=== PATIENT | male | born 1950 | race Caucasian/White ===

== ENCOUNTER 2016-10-18 16:09 | Emergency (ER) | payer OTHER ==
[2016-10-18 16:41] LABS: BASOPHILS 0.5 % (0.0-2.0); EOSINOPHILS 1.9 % (0-7); IMMATURE GRANULOCYTES 0.7 % (0-5); LYMPHOCYTES 13.2 % (15-50); MCH 29.3 pg (26.0-34.0); MCHC 32.5 g/dL (31.0-37.0); MCV 90.1 fL (80.0-100.0); MEAN PLATELET VOLUME 11.8 fL (7.4-10.4); MONOCYTES 10.4 % (2-11); NEUTROPHILS 73.3 % (40-80); PLATELET COUNT 147 10x3/uL (130-400); RBC 2.22 10x6/uL (4.20-6.10); RDW 18.8 % (11.5-14.5); WBC 9.1 10x3/uL (4.8-10.8)
[2016-10-18 17:13] LABS: ALKALINE PHOSPHATASE 55 U/L (46-116); ALT (SGPT) 28 U/L (10-68); BILIRUBIN - TOTAL 0.28 mg/dL (0.2-1.3); CALC OSMOLALITY 288 mosm/kg (275-300); CALCIUM 8.4 mg/dL (8.5-10.1); CHLORIDE - SERUM 106 mmol/L (98-107); CREATININE - SERUM 1.3 mg/dL (0.6-1.3); GLUCOSE 220 mg/dL (74-106); PROTEIN - SERUM 6.2 g/dL (6.4-8.2); SODIUM 141 mmol/L (136-145); UREA NITROGEN 15 mg/dL (7-18); eGFR NON AFRICAN AMERICAN 58 mL/min (90-120)
[2016-10-18 17:17] LABS: HEMOGLOBIN 6.5 g/dL (13.5-17.5)
[2016-10-18 17:28] LABS: CHOL - HDL RATIO 2.9 ratio (2.3-4.9); CHOLESTEROL, TOTAL 91 mg/dL (0-200); CKMB 5.5 U/L (0.0-3.6); CREATINE KINASE 199 UL (21-232); HDL CHOLESTEROL 31 mg/dL (32-96); LDL CHOLESTEROL 41 mg/dL (0-100); LDL-HDL RATIO 1.3 ratio (1.5-3.5); TRIGLYCERIDE 98 mg/dL (30-200)
[2016-10-18 17:37] LABS: TROPONIN-I 1.733 ng/mL (0.000-0.060)
== END 2016-10-19 00:08 | disposition short-term general hospital (02) ==
LOC: D.ER 16:09
PROVIDERS: Emergency Medicine
DX: K92.2 Gastrointestinal hemorrhage, unspecified (principal); D64.9 Anemia, unspecified; I24.9 Acute ischemic heart disease, unspecified; I10 Essential (primary) hypertension; E11.9 Type 2 diabetes mellitus without complications

== ENCOUNTER → 2016-12-23 08:04 | Outpatient (CLI) | payer OTHER ==
--- NOTE | ~2016-12-23 | EC ---
PATIENT:HEATHER LUIS DATE OF SERVICE: 12/23/16 SEX: M MEDICAL RECORD: [id number] DATE OF : [birth year] LOCATION:[facility] AGE OF PATIENT: 66 ADMISSION DATE: 12/23/16 REFERRING PHYSICIAN: INTERPRETING PHYSICIAN: ADRYAN MAR M.D. ECHOCARDIOGRAM REPORT ECHO CHARGES 4 ECHO COMPLETE CLINICAL DIAGNOSIS: ISCHEMIC HEART DISEASE/RECENT CABG X2 ASSESS EF ECHOCARDIOGRAPHIC MEASUREMENTS (adult normal given) AC root (d.<3.7cm) 3.8 LV Septum d (<1.2 cm> 1.7 Valve Excursion 2.0 LV Septum (systole) 1.9 Left Atria (s.<4.0cm> 3.1 LVPW d(<1.2cm) 1.2 RV (d.<2.3cm) 3.6 LVPW (sytole) 1.9 LV diastole(<5.6CM) 4.8 MV E-F(>70mm/sec) LV systole 3.6 LVOT Diameter 2.2 MV exc.(>10mm) 1.7 Est.ejection fraction (50-75%) Pericardial Effusion N DOPPLER: LVIT A 81.0 E 49.0 LA RVSP 41 LVOT 99 AOP1/2T Asc. Ao 121 RVOT 72 RA PA 101 AV Gradient Peak 5.90 AV Mean 3.03 AV Area 2.8 MV Gradient Peak 3.62 MV Mean 1.20 MV Area COMMENTS: Materials Clerk: Melissa ALONSO Medical Service Technician:Melissa Mar TAPE# PACS DATE OF SERVICE: 12/23/2016 REFERRING PHYSICIAN: Jason Hutson. INDICATION: Coronary artery disease. DESCRIPTION: Left ventricle demonstrates left ventricular hypertrophy.. There is mild LV dysfunction noted. Estimated ejection fraction is in the order of 45% to 50%. Mitral valve is structurally normal. There is mild regurgitation seen. There is no evidence of prolapse. Left atrium is normal in size. The ECHOCARDIOGRAM REPORT [id number] HEATHER LUIS aortic valve is trileaflet. There is no stenosis or regurgitation seen. Right ventricle is mildly dilated. Tricuspid valve is structurally normal. There is mild regurgitation noted. Right ventricular systolic pressure is elevated at 41 mmHg. There is no pericardial effusion seen. IMPRESSION: 1. Left ventricular hypertrophy with mild left ventricular dysfunction with ejection fraction of 45% to 50%. 2. Mild mitral regurgitation. 3. Mild tricuspid regurgitation. TRANSINT:[id number] Voice Confirmation ID: [id number] DOCUMENT ID: [id number] ADRYAN MAR M.D. CC: [id number] DICTATION DATE: 12/24/16804 WOUND CARE SPECIALIST: 12/24/16 [id number] [facility] CLI 12/23/16 [place] [id number] [place] [id number]
[2016-12-23 08:55] LABS: ALBUMIN 3.9 g/dL (3.4-5.0); ALKALINE PHOSPHATASE 72 U/L (46-116); ALT (SGPT) 21 U/L (10-68); BILIRUBIN - TOTAL 0.54 mg/dL (0.2-1.3); CALC OSMOLALITY 283 mosm/kg (275-300); CALCIUM 9.3 mg/dL (8.5-10.1); CHLORIDE - SERUM 106 mmol/L (98-107); GLUCOSE 141 mg/dL (74-106); POTASSIUM - SERUM 4.6 mmol/L (3.5-5.1); SODIUM 142 mmol/L (136-145); UREA NITROGEN 10 mg/dL (7-18); eGFR NON AFRICAN AMERICAN 79 mL/min (90-120)
[2016-12-23 09:07] LABS: APPEARANCE CLEAR (CLEAR); BILIRUBIN NEGATIVE (NEGATIVE); COLOR YELLOW (YELLOW); GLUCOSE NEGATIVE (NEGATIVE); KETONE NEGATIVE (NEGATIVE); LEUKOCYTE ESTERASE NEGATIVE (NEGATIVE); NITRITE NEGATIVE (NEGATIVE); PROTEIN 1+ mg/dL (NEGATIVE); SPECIFIC GRAVITY 1.005 (1.005-1.020); UROBILINOGEN NORMAL (NORMAL)
[2016-12-23 09:08] LABS: BACTERIA FEW /hpf (NONE SEEN); EPITHELIAL CELLS OCC /hpf (0-5); RED CELLS - URINE NONE SEEN /hpf (0-5); WHITE CELLS - URINE NSEEN /hpf (0-5)
== END | disposition home or self-care (01) ==
LOC: D.ECHO 08:04
PROVIDERS: Physical Medicine & Rehabilitation
DX: I25.9 Chronic ischemic heart disease, unspecified (principal); E11.9 Type 2 diabetes mellitus without complications